=== PATIENT | female | born 1945 ===

== ENCOUNTER → 2021-11-22 11:25 | Outpatient (BNVA) | payer MEDICARE, OTHER, SELFPAY | PROVIDERS: PCP Internal Medicine; Visit Provider Psychiatry & Neurology Neurology | DX: G21.9 Secondary parkinsonism, unspecified (principal); M79.606 Pain in leg, unspecified | CPT/HCPCS: 99212 ==

== ENCOUNTER → 2022-06-27 10:56 | Outpatient (BNVA) | payer MEDICARE, OTHER, SELFPAY | PROVIDERS: PCP Internal Medicine; Visit Provider Nurse Practitioner Family | DX: M79.606 Pain in leg, unspecified (principal); G21.9 Secondary parkinsonism, unspecified | CPT/HCPCS: 99212 ==

== ENCOUNTER → 2022-12-29 10:52 | Outpatient (BNVA) | payer MEDICARE, OTHER, SELFPAY | PROVIDERS: PCP Internal Medicine; Visit Provider Nurse Practitioner Family | DX: M79.606 Pain in leg, unspecified (principal); M79.661 Pain in right lower leg; M79.662 Pain in left lower leg; G21.9 Secondary parkinsonism, unspecified | CPT/HCPCS: 99212 ==

== ENCOUNTER 2023-08-14 10:56 | Outpatient (AMB) | payer MEDICARE, OTHER, SELFPAY ==
--- NOTE | 2023-08-14 11:21 | A.OFFVIS_ITS ---
Intake Vital Signs 08/14/23 11:23 Height 5 ft 7 in Weight 144 lb 4 oz BMI 22.6 BP 102/60 Blood Pressure Location Rt brachial Position Sitting Respiration 16 Pulse 92 Pulse Source Pulse Oximeter Pulse Oximetry (%) 94 Oxygen Delivery Method Room Air Intake Visit Reasons: 6m follow up parkinsons-LVM Intake Note: Pt presents to the office for 6 month follow up for Parkinson's. Collar Fuser Required: No Allergies cefadroxil [From Duricef] Allergy (Mild, Verified 08/14/23 11:22) rash ciprofloxacin [From Cipro] Allergy (Mild, Verified 08/14/23 11:22) Rash HPI HPI Comments History of Present Illness Details 77 y/o female comes for follow up of sec ondary Parkinsonism and leg pain. Pt reports she had a back surgery in May, and her leg pain and muscle tightness has resolved. She can walk without pain, still uses cane when she go out. Pt states that Sinemet and gabapentin help to reduced her stiffness. She does not need ankle boots anymore. She takes magnesium with calcium supplement daily. Denies legs numbness, tingling or burning sensation. FORMERLY [facility], 1928–1983 Medical History Secondary parkinsonism Thyroid disease GERD (gastroesophageal reflux disease) Depression Asthma Surgical History (Updated 08/14/23 @ 11:26 by Beatriz Benton CMA) Previous back surgery Hx of cataract surgery History of shoulder surgery Hx of hysterectomy Family History Father No problems noted. Mother No problems noted. Brother Diabetes Brother No problems noted. Social History Alcohol intake: current Alcohol intake frequency: holidays/special occasions only Patient Tobacco Use Status: Former Tobacco user Review of Systems Const All systems reviewed & are unremarkable except as noted in HPI and below Physical Exam Vital Signs: Last Vital Signs Pulse 92 08/14/23 11:23 Resp 16 08/14/23 11:23 BP 102/60 08/14/23 11:23 Pulse Ox 94 08/14/23 11:23 Oxygen Delivery Method Room Air 08/14/23 11:23 BMI result Body Mass Index 22.6 Const General: cooperative, comfortable and no acute distress Nutritional Appearance: average body habitus Orientation/consciousness: patient oriented x3 HEENT Head: Yes normocephalic Neuro Other: mild decreased blink and facial expression Mild lip and tongue movements-involuntary Minimal bilateral hands posturing tremor R>L FFM mildly decreased ayla mild stoop , tilted to right, decreased bilateral arm swing. General: patient oriented x3, tone normal, moves all extremities and no focal motor deficits Motor exam (neuro): 5/5 motor strength present throughout, Pronator motor function not present and Tremors during motor activity present (minimal bilateral hands poturing tremor R>L) Deep tendon reflexes (DTR's): Right patellar reflex intensity grade: 2+ and Left patellar reflex intensity grade: 1+ Psych Appearance: grossly normal Mental Status: mental status grossly normal Assessment & Plan Assessment & Plan (1) Leg pain: Code(s): M79.606 - Pain in leg, unspecified (2) Secondary parkinsonism: Code(s): G21.9 - Secondary parkinsonism, unspecified (3) Bilateral calf pain: Code(s): M79.661 - Pain in right lower leg; M79.662 - Pain in left lower leg Plan Advised patient to continue to take sinemet 25/100 bid and gabapentin 200mg tid. Continue to do daily PT exercise and take magnesium and calcium supplement. Use cane as needed. Coding Level of Care Code Est Pt Level 4 (28731) Diagnoses Leg pain M79.606 Secondary parkinsonism G21.9 Bilateral calf pain M79.661; M79.662
[2023-08-14 11:23] VITALS: BP 102/60; PULSE 92; RESP 16; O2SAT 94; BMI 22.6
== END 2023-08-14 11:36 | disposition home or self-care (01) ==
PROVIDERS: Visit Provider Nurse Practitioner Family
DX: M79.606 Pain in leg, unspecified (principal); G21.9 Secondary parkinsonism, unspecified; M79.661 Pain in right lower leg; M79.662 Pain in left lower leg
CPT/HCPCS: 99214

== ENCOUNTER → 2023-08-14 10:56 | Outpatient (BNVA) | payer MEDICARE, OTHER, SELFPAY | PROVIDERS: Visit Provider Nurse Practitioner Family | DX: M79.661 Pain in right lower leg (principal); M79.662 Pain in left lower leg; G21.9 Secondary parkinsonism, unspecified | CPT/HCPCS: 99212 ==

== ENCOUNTER 2024-08-15 13:47 | Outpatient (AMB) | payer MEDICARE, OTHER, SELFPAY ==
--- NOTE | 2024-08-15 13:51 | A.OFFVIS_ITS ---
Vital Signs 08/15/24 13:52 Height 5 ft 7 in Weight 145 lb 6 oz BMI 22.8 Intake Visit Reasons: 10 mo f/u Parkinsons Intake Note: Patient presents for follow up Allergies cefadroxil [From Duricef] Allergy (Mild, Verified 08/15/24 13:53) rash ciprofloxacin [From Cipro] Allergy (Mild, Verified 08/15/24 13:53) Rash HPI Comments Details: 79 y/o female comes for follow up of secondary Parkinsonism .she is doing good. No leg pain now. Pt reports she had a back surgery in May 2023 and her leg pain and muscle tightness has resolved. She can walk without pain, still uses cane when she go out. Pt states that Sinemet and gabapentin help to reduced her stiffness. She does not need ankle boots anymore. She takes magnesium with calcium supplement daily. Denies legs numbness, tingling or burning sensation. ON LICENSE OF [facility] Medical History Secondary parkinsonism Thyroid disease GERD (gastroesophageal reflux disease) Depression Asthma Surgical History Previous back surgery Hx of cataract surgery History of shoulder surgery Hx of hysterectomy Family History Father No problems noted. Mother No problems noted. Brother Diabetes Brother No problems noted. Social History Alcohol intake: current Alcohol intake frequency: holidays/special occasions only Patient Tobacco Use Status: Former Tobacco user Physical Exam Vital Signs: BMI result Body Mass Index 22.8 Const General: cooperative, comfortable and no acute distress Nutritional Appearance: average body habitus Orientation/consciousness: patient oriented x3 HEENT Head: Yes normocephalic Neuro Other: mild decreased blink and facial expression dysconjugate gaze No tremors FFM mildly decreased ayal mild stoop , tilted to right, decreased bilateral arm swing. General: patient oriented x3, tone normal, moves all extremities and no focal motor deficits Motor exam (neuro): 5/5 motor strength present throughout, Pronator motor function not present and Tremors during motor activity present (minimal bilateral hands poturing tremor R>L) Psych Appearance: grossly normal Mental Status: mental status grossly normal Assessment & Plan Assessment & Plan (1) Secondary parkinsonism: Code(s): G21.9 - Secondary parkinsonism, unspecified Category: Medical Qualifiers: Secondary Parkinsonism type: unspecified secondary Qualified Code(s): G21.9 - Secondary parkinsonism, unspecified (2) Bilateral calf pain: Code(s): M79.661 - Pain in right lower leg; M79.662 - Pain in left lower leg Category: Medical Plan Advised patient to continue to take sinemet 25/100 bid and gabapentin 200mg tid. Continue to do daily PT exercise and take magnesium and calcium supplement. Use cane as needed. Coding Level of Care Code Est Pt Level 4 (17858) Diagnoses Secondary parkinsonism, unspecified secondary Parkinsonism type G21.9 Secondary Parkinsonism type: unspecified secondary Bilateral calf pain M79.661; M79.662
[2024-08-15 13:52] VITALS: BMI 22.8
== END 2024-08-15 14:21 | disposition home or self-care (01) ==
PROVIDERS: PCP Internal Medicine; Visit Provider Psychiatry & Neurology Neurology
DX: G21.9 Secondary parkinsonism, unspecified (principal); M79.661 Pain in right lower leg; M79.662 Pain in left lower leg
CPT/HCPCS: 99214

== ENCOUNTER → 2024-08-15 13:47 | Outpatient (BNVA) | payer MEDICARE, OTHER, SELFPAY | PROVIDERS: PCP Internal Medicine; Visit Provider Psychiatry & Neurology Neurology | DX: G21.9 Secondary parkinsonism, unspecified (principal); M79.661 Pain in right lower leg; M79.662 Pain in left lower leg | CPT/HCPCS: 99212 ==